=== PATIENT | female | born 1940 | race American Indian/Alaskan Native ===

== ENCOUNTER 2023-09-24 15:53 | Inpatient (IN) | payer BC, OTHER ==
[~2023-09-24] VITALS: Ht 152.4 cm; Wt 593.8 kg
[2023-09-24 15:55] VITALS: BP 128/62; PULSE 58; RESP 18; TEMP 97.8; O2SAT 99
[2023-09-24 16:36] LABS: BASOPHILS # (AUTO) 0.1 K/uL (0.00-0.22); EOSINOPHILS # (AUTO) 0.4 K/uL (0-0.4); EOSINOPHILS % (AUTO) 7.3 % (0.0-4.0); HEMATOCRIT 33.4 % (36-48); HEMOGLOBIN 10.7 g/dL (12.0-16.0); LYMPHOCYTES # (AUTO) 0.5 K/uL (2.5-16.5); LYMPHOCYTES % (AUTO) 9.1 % (20.5-51.1); MEAN CORPUSCULAR HEMOGLOBIN 23 pg (27-31); MEAN CORPUSCULAR HGB CONC 32 g/dL (33-37); MONOCYTES # (AUTO) 0.2 K/uL (0.8-1.0); MONOCYTES % (AUTO) 4.5 % (1.7-9.3); NEUTROPHILS % (AUTO) 78.1 % (42.2-75.2); PLATELET COUNT (AUTO) 131 K/uL (140-450); RED BLOOD CELL COUNT(AUTO) 4.77 MIL/uL (4.20-5.40); WHITE BLOOD COUNT (AUTO) 5.2 K/uL (4.8-10.8)
[2023-09-24 16:50] LABS: ALANINE AMINOTRANSFERASE 24 U/L (12-78); ALBUMIN 3.2 g/dL (3.4-5.0); ALKALINE PHOSPHATASE 74 U/L (50-136); ANION GAP 11.3 (8-16); ASPARTATE AMINOTRANSFERASE 41 U/L (15-37); CALCIUM 8.8 mg/dL (8.5-10.1); CARBON DIOXIDE 31.2 mmol/L (21-32); CHLORIDE 100 mmol/L (98-107); CREATININE 1.3 mg/dL (0.6-1.3); GLUCOSE 106 mg/dL (74-106); POTASSIUM 3.5 mmol/L (3.5-5.1); SODIUM SERUM 139 mmol/L (136-145); TOTAL BILIRUBIN 1.1 mg/dL (0.0-1.0); TOTAL PROTEIN, SERUM 7.4 g/dL (6.4-8.2); UREA NITROGEN, BLOOD 35 mg/dL (7-18)
[2023-09-24] MEDS ORDERED: TRAM50TA3 PO (19:12)
[2023-09-24] MEDS ORDERED: DILT30TA PO (19:12)
[2023-09-24] MEDS ORDERED: ALLO300T28 PO (19:12)
[2023-09-24] MEDS ORDERED: FURO20TA8 PO (19:12)
[2023-09-24] MEDS ORDERED: METO-744 PO (19:12)
[2023-09-24] MEDS ORDERED: KCL 20 MEQ IN 100 mL PREMIX 200 ML IV PRN (19:20)
[2023-09-24] MEDS ORDERED: MAG SULF 2000 MG/WATER PREMIX 50 ML IV PRN (19:20)
[2023-09-24] MEDS ORDERED: MAGNESIUM OXIDE 400 MG TAB PO PRN (19:20)
[2023-09-24 19:32] VITALS: O2SAT 99
[2023-09-24] MEDS: FUROSEMIDE 20 MG/2 ML VIAL IVP SCH (21:00)
[2023-09-24 21:45] VITALS: BP 105/62; PULSE 51; PULSE 93; RESP 18; TEMP 98.2; O2SAT 95; O2SAT 96
[2023-09-24 23:55] VITALS: PULSE 93
[2023-09-25] VITALS (8 sets, daily range): BP systolic 107–118; BP diastolic 51–67; PULSE 72–122; RESP 18–20; TEMP 96.9–98.2; O2SAT 96–99
[2023-09-25 07:07] LABS: BASOPHILS % (AUTO) 0.7 % (0.0-2.0); EOSINOPHILS # (AUTO) 0.4 K/uL (0-0.4); EOSINOPHILS % (AUTO) 8.9 % (0.0-4.0); HEMATOCRIT 30.8 % (36-48); LYMPHOCYTES # (AUTO) 0.5 K/uL (2.5-16.5); LYMPHOCYTES % (AUTO) 10.2 % (20.5-51.1); MEAN CORPUSCULAR HEMOGLOBIN 23 pg (27-31); MEAN CORPUSCULAR HGB CONC 33 g/dL (33-37); MEAN CORPUSCULAR VOLUME 69.6 fL (80-94); MONOCYTES # (AUTO) 0.3 K/uL (0.8-1.0); NEUTROPHILS # (AUTO) 3.4 K/uL (1.8-7.7); NEUTROPHILS % (AUTO) 74.2 % (42.2-75.2); PLATELET COUNT (AUTO) 144 K/uL (140-450); RED BLOOD CELL COUNT(AUTO) 4.43 MIL/uL (4.20-5.40); RED CELL DISTRIBUTION WIDTH 17.9 % (11.6-13.7); WHITE BLOOD COUNT (AUTO) 4.6 K/uL (4.8-10.8)
[2023-09-25 07:53] LABS: MAGNESIUM 2.3 mg/dL (1.8-2.4); PHOSPHORUS 3.1 mg/dL (2.5-4.9)
[2023-09-25 08:23] LABS: ANION GAP 13.4 (8-16); CALCIUM 8.5 mg/dL (8.5-10.1); CARBON DIOXIDE 25.1 mmol/L (21-32); CHLORIDE 105 mmol/L (98-107); CREATININE 1.3 mg/dL (0.6-1.3); GLUCOSE 119 mg/dL (74-106); POTASSIUM 3.5 mmol/L (3.5-5.1); SODIUM SERUM 140 mmol/L (136-145); UREA NITROGEN, BLOOD 36 mg/dL (7-18)
[2023-09-25] MEDS: FUROSEMIDE 40 MG/4 ML VIAL IVP SCH (09:42)
[2023-09-25] MEDS: ASPIRIN 81 MG TAB.CHEW PO SCH (09:43)
[2023-09-25] MEDS: ATORVASTATIN 20 MG TAB PO SCH (09:43)
[2023-09-25] MEDS: HYDROcodone/APAP 5/325 MG 1 TAB TAB PO PRN (17:57)
[2023-09-25] MEDS: ZOLPIDEM 5 MG TAB PO PRN (20:14)
[2023-09-25] MEDS: DILTIAZEM 25 MG/5 ML VIAL IVP PRN (22:38)
[2023-09-26] VITALS (10 sets, daily range): BP systolic 106–128; BP diastolic 52–70; PULSE 90–124; RESP 18–21; TEMP 97.4–98.7; O2SAT 97–100
[2023-09-26 06:49] LABS: BASOPHILS % (AUTO) 0.4 % (0.0-2.0); EOSINOPHILS # (AUTO) 0.5 K/uL (0-0.4); EOSINOPHILS % (AUTO) 10.8 % (0.0-4.0); HEMATOCRIT 32.3 % (36-48); HEMOGLOBIN 10.3 g/dL (12.0-16.0); LYMPHOCYTES # (AUTO) 0.7 K/uL (2.5-16.5); LYMPHOCYTES % (AUTO) 14.2 % (20.5-51.1); MEAN CORPUSCULAR HEMOGLOBIN 23 pg (27-31); MEAN CORPUSCULAR HGB CONC 32 g/dL (33-37); MEAN CORPUSCULAR VOLUME 70.4 fL (80-94); MONOCYTES # (AUTO) 0.3 K/uL (0.8-1.0); NEUTROPHILS # (AUTO) 3.5 K/uL (1.8-7.7); NEUTROPHILS % (AUTO) 69.6 % (42.2-75.2); PLATELET COUNT (AUTO) 125 K/uL (140-450); RED BLOOD CELL COUNT(AUTO) 4.59 MIL/uL (4.20-5.40); RED CELL DISTRIBUTION WIDTH 18.3 % (11.6-13.7)
[2023-09-26 07:54] LABS: ANION GAP 10.8 (8-16); CALCIUM 8.6 mg/dL (8.5-10.1); CARBON DIOXIDE 28.7 mmol/L (21-32); CHLORIDE 104 mmol/L (98-107); CREATININE 1.5 mg/dL (0.6-1.3); GLUCOSE 124 mg/dL (74-106); POTASSIUM 3.5 mmol/L (3.5-5.1); SODIUM SERUM 140 mmol/L (136-145); UREA NITROGEN, BLOOD 43 mg/dL (7-18)
[2023-09-26 08:13] LABS: PHOSPHORUS 3.6 mg/dL (2.5-4.9)
[2023-09-27] VITALS (11 sets, daily range): BP systolic 99–120; BP diastolic 50–61; PULSE 98–115; RESP 16–21; TEMP 98.7–99.3; O2SAT 94–100
[2023-09-27 07:49] LABS: BASOPHILS % (AUTO) 0.3 % (0.0-2.0); EOSINOPHILS # (AUTO) 0.6 K/uL (0-0.4); EOSINOPHILS % (AUTO) 10.5 % (0.0-4.0); HEMATOCRIT 31.6 % (36-48); LYMPHOCYTES # (AUTO) 0.6 K/uL (2.5-16.5); LYMPHOCYTES % (AUTO) 10.4 % (20.5-51.1); MEAN CORPUSCULAR HEMOGLOBIN 22 pg (27-31); MEAN CORPUSCULAR HGB CONC 32 g/dL (33-37); MEAN CORPUSCULAR VOLUME 70.8 fL (80-94); MONOCYTES # (AUTO) 0.3 K/uL (0.8-1.0); MONOCYTES % (AUTO) 4.2 % (1.7-9.3); NEUTROPHILS # (AUTO) 4.6 K/uL (1.8-7.7); NEUTROPHILS % (AUTO) 74.6 % (42.2-75.2); RED BLOOD CELL COUNT(AUTO) 4.46 MIL/uL (4.20-5.40); WHITE BLOOD COUNT (AUTO) 6.1 K/uL (4.8-10.8)
[2023-09-27 07:51] LABS: ANION GAP 8.9 (8-16); CALCIUM 8.4 mg/dL (8.5-10.1); CARBON DIOXIDE 30.4 mmol/L (21-32); CHLORIDE 102 mmol/L (98-107); CREATININE 1.7 mg/dL (0.6-1.3); GLUCOSE 157 mg/dL (74-106); POTASSIUM 3.3 mmol/L (3.5-5.1); SODIUM SERUM 138 mmol/L (136-145); UREA NITROGEN, BLOOD 47 mg/dL (7-18)
[2023-09-27 08:19] LABS: MAGNESIUM 1.9 mg/dL (1.8-2.4); PHOSPHORUS 3.3 mg/dL (2.5-4.9)
[2023-09-27 08:53] LABS: PLATELET COUNT (AUTO) 120 K/uL (140-450)
[2023-09-27] MEDS: POTASSIUM CHLORIDE 10 MEQ TABER PO PRN (09:33)
[2023-09-27] MEDS: ALBUTEROL SULFATE/IPRATROPIU 3 ML SOL IH SCH (13:38)
[2023-09-27] MEDS ORDERED: METOPROLOL 25 MG TAB PO SCH (21:00)
[2023-09-28] VITALS (7 sets, daily range): BP systolic 95–116; BP diastolic 60–62; PULSE 102–125; RESP 18–24; TEMP 98–98.6; O2SAT 97–100
[2023-09-28] MEDS ORDERED: PIPERACILLIN/TAZOBACTAM 2.25 GM in DEXTROSE 5% 50 ML IV SCH ×2 (00:20→21:00)
[2023-09-28] MEDS: ACETAMINOPHEN 325 MG TAB PO PRN (04:51)
[2023-09-28 06:30] LABS: BASOPHILS % (AUTO) 0.1 % (0.0-2.0); EOSINOPHILS # (AUTO) 0.7 K/uL (0-0.4); EOSINOPHILS % (AUTO) 11.3 % (0.0-4.0); HEMATOCRIT 30.8 % (36-48); HEMOGLOBIN 9.8 g/dL (12.0-16.0); LYMPHOCYTES # (AUTO) 0.6 K/uL (2.5-16.5); LYMPHOCYTES % (AUTO) 9.3 % (20.5-51.1); MEAN CORPUSCULAR HEMOGLOBIN 23 pg (27-31); MEAN CORPUSCULAR HGB CONC 32 g/dL (33-37); MEAN CORPUSCULAR VOLUME 70.7 fL (80-94); MONOCYTES # (AUTO) 0.3 K/uL (0.8-1.0); MONOCYTES % (AUTO) 4.7 % (1.7-9.3); NEUTROPHILS # (AUTO) 4.6 K/uL (1.8-7.7); NEUTROPHILS % (AUTO) 74.6 % (42.2-75.2); PLATELET COUNT (AUTO) 134 K/uL (140-450); RED BLOOD CELL COUNT(AUTO) 4.36 MIL/uL (4.20-5.40); RED CELL DISTRIBUTION WIDTH 18.7 % (11.6-13.7); WHITE BLOOD COUNT (AUTO) 6.2 K/uL (4.8-10.8)
[2023-09-28 07:00] LABS: ANION GAP 11.3 (8-16); CALCIUM 8.7 mg/dL (8.5-10.1); CARBON DIOXIDE 28.8 mmol/L (21-32); CHLORIDE 101 mmol/L (98-107); CREATININE 1.6 mg/dL (0.6-1.3); GLUCOSE 155 mg/dL (74-106); POTASSIUM 4.1 mmol/L (3.5-5.1); SODIUM SERUM 137 mmol/L (136-145); UREA NITROGEN, BLOOD 49 mg/dL (7-18)
[2023-09-28 07:14] LABS: MAGNESIUM 2.1 mg/dL (1.8-2.4); PHOSPHORUS 2.5 mg/dL (2.5-4.9)
[2023-09-28] MEDS: METOPROLOL 25 MG TAB PO SCH (09:00)
[2023-09-28] MEDS ORDERED: FUROSEMIDE 40 MG TAB PO SCH (09:00)
[2023-09-28] MEDS ORDERED: NACL 0.9% 500 ML IV SCH (16:10)
[2023-09-28] MEDS: NACL 0.9% 1,000 ML IV SCH (18:04)
[2023-09-28] MEDS: PIPERACILLIN/TAZOBACTAM 2.25 GM in DEXTROSE 5% 50 ML IV SCH (18:05)
[2023-09-28 18:30] LABS: LACTIC ACID 2.8 mmol/L (0.4-2.0)
[2023-09-28] MEDS ORDERED: ALBUTEROL SULFATE/IPRATROPIU 3 ML SOL IH PRN (18:35)
[2023-09-29] VITALS (19 sets, daily range): BP systolic 82–112; BP diastolic 41–63; PULSE 79–119; RESP 16–26; TEMP 98.2–98.9; O2SAT 95–100
[2023-09-29] MEDS: PIPERACILLIN/TAZOBACTAM 2.25 GM in DEXTROSE 5% 50 ML IV SCH (02:00)
[2023-09-29] MEDS ORDERED: PIPERACILLIN/TAZOBACTAM 2.25 GM in DEXTROSE 5% 50 ML IV SCH (05:00)
[2023-09-29 07:05] LABS: BASOPHILS % (AUTO) 0.2 % (0.0-2.0); EOSINOPHILS # (AUTO) 1.1 K/uL (0-0.4); EOSINOPHILS % (AUTO) 17.1 % (0.0-4.0); HEMATOCRIT 30.8 % (36-48); HEMOGLOBIN 9.8 g/dL (12.0-16.0); LYMPHOCYTES # (AUTO) 0.5 K/uL (2.5-16.5); MEAN CORPUSCULAR HEMOGLOBIN 23 pg (27-31); MEAN CORPUSCULAR HGB CONC 32 g/dL (33-37); MEAN CORPUSCULAR VOLUME 71.5 fL (80-94); MONOCYTES # (AUTO) 0.2 K/uL (0.8-1.0); MONOCYTES % (AUTO) 3.2 % (1.7-9.3); NEUTROPHILS # (AUTO) 4.4 K/uL (1.8-7.7); NEUTROPHILS % (AUTO) 71.5 % (42.2-75.2); PLATELET COUNT (AUTO) 138 K/uL (140-450); RED BLOOD CELL COUNT(AUTO) 4.31 MIL/uL (4.20-5.40); RED CELL DISTRIBUTION WIDTH 18.4 % (11.6-13.7); WHITE BLOOD COUNT (AUTO) 6.2 K/uL (4.8-10.8)
[2023-09-29 07:24] LABS: CALCIUM 8.3 mg/dL (8.5-10.1); CARBON DIOXIDE 25.3 mmol/L (21-32); CHLORIDE 102 mmol/L (98-107); CREATININE 1.8 mg/dL (0.6-1.3); GLUCOSE 128 mg/dL (74-106); POTASSIUM 4.3 mmol/L (3.5-5.1); SODIUM SERUM 136 mmol/L (136-145); UREA NITROGEN, BLOOD 48 mg/dL (7-18)
[2023-09-29 07:29] LABS: PHOSPHORUS 2.8 mg/dL (2.5-4.9)
[2023-09-29 08:34] LABS: BLOOD GAS BASE EXCESS 0.9 mmol/L (-2.0-2.0); BLOOD GAS HCO3 24.1 mmol/L (22-26); BLOOD GAS PCO2 33.3 mmHg (35-45); BLOOD GAS PH 7.477 (7.35-7.45); BLOOD GAS PO2 69.2 mmHg (75-100)
[2023-09-29 08:35] LABS: BLOOD GAS O2 SAT% 95.2 % (92.0-98.5)
[2023-09-29] MEDS: NACL 0.9% 1,000 ML IV STA (08:39)
[2023-09-29] MEDS: PANTOPRAZOLE 40 MG INJ VIAL IVP SCH (10:24)
[2023-09-29] MEDS: METOPROLOL 25 MG TAB PO SCH (20:14)
[2023-09-29 20:43] LABS: FLU A ANTIGEN negative (NEGATIVE); FLU B ANTIGEN NEGATIVE (NEGATIVE)
[2023-09-30] VITALS (26 sets, daily range): BP systolic 87–150; BP diastolic 42–79; PULSE 91–121; RESP 20–28; TEMP 98.3–101; O2SAT 96–100
[2023-09-30] MEDS: ONDANSETRON 4 MG/2 ML VIAL IVP PRN (00:49)
[2023-09-30 05:33] LABS: BASOPHILS # (AUTO) 0.1 K/uL (0.00-0.22); BASOPHILS % (AUTO) 0.8 % (0.0-2.0); EOSINOPHILS # (AUTO) 1.4 K/uL (0-0.4); HEMATOCRIT 34.5 % (36-48); HEMOGLOBIN 11.1 g/dL (12.0-16.0); LYMPHOCYTES # (AUTO) 0.7 K/uL (2.5-16.5); LYMPHOCYTES % (AUTO) 7.7 % (20.5-51.1); MEAN CORPUSCULAR HEMOGLOBIN 23 pg (27-31); MEAN CORPUSCULAR HGB CONC 32 g/dL (33-37); MEAN CORPUSCULAR VOLUME 71.4 fL (80-94); MONOCYTES # (AUTO) 0.4 K/uL (0.8-1.0); NEUTROPHILS # (AUTO) 5.9 K/uL (1.8-7.7); NEUTROPHILS % (AUTO) 69.6 % (42.2-75.2); PLATELET COUNT (AUTO) 159 K/uL (140-450); RED BLOOD CELL COUNT(AUTO) 4.83 MIL/uL (4.20-5.40); RED CELL DISTRIBUTION WIDTH 19.5 % (11.6-13.7); WHITE BLOOD COUNT (AUTO) 8.5 K/uL (4.8-10.8)
[2023-09-30 05:42] LABS: ANION GAP 9.7 (8-16); CALCIUM 7.9 mg/dL (8.5-10.1); CARBON DIOXIDE 27.1 mmol/L (21-32); CHLORIDE 104 mmol/L (98-107); CREATININE 1.7 mg/dL (0.6-1.3); GLUCOSE 109 mg/dL (74-106); POTASSIUM 4.8 mmol/L (3.5-5.1); SODIUM SERUM 136 mmol/L (136-145); UREA NITROGEN, BLOOD 42 mg/dL (7-18)
[2023-09-30 06:08] LABS: EOSINOPHILS % (AUTO) 16.9 % (0.0-4.0)
[2023-10-01] VITALS (16 sets, daily range): BP systolic 87–118; BP diastolic 40–58; PULSE 78–121; RESP 19–23; TEMP 97.9–99; O2SAT 95–100
[2023-10-01 05:27] LABS: ANION GAP 11.4 (8-16); CALCIUM 7.4 mg/dL (8.5-10.1); CARBON DIOXIDE 23.2 mmol/L (21-32); CHLORIDE 105 mmol/L (98-107); CREATININE 1.7 mg/dL (0.6-1.3); GLUCOSE 110 mg/dL (74-106); POTASSIUM 4.6 mmol/L (3.5-5.1); SODIUM SERUM 135 mmol/L (136-145); UREA NITROGEN, BLOOD 42 mg/dL (7-18)
[2023-10-01 09:41] LABS: HEMATOCRIT 33.3 % (36-48); HEMOGLOBIN 10.7 g/dL (12.0-16.0); MEAN CORPUSCULAR HEMOGLOBIN 23 pg (27-31); MEAN CORPUSCULAR HGB CONC 32 g/dL (33-37); MEAN CORPUSCULAR VOLUME 71.3 fL (80-94); PLATELET COUNT (AUTO) 163 K/uL (140-450); RED BLOOD CELL COUNT(AUTO) 4.67 MIL/uL (4.20-5.40); RED CELL DISTRIBUTION WIDTH 20.5 % (11.6-13.7); WHITE BLOOD COUNT (AUTO) 8.4 K/uL (4.8-10.8)
[2023-10-01 09:58] LABS: LYMPHOCYTES % (MANUAL) 11 % (20-46); MONOCYTES % (MANUAL) 4 % (5-12)
[2023-10-01 09:59] LABS: EOSINOPHILS % (MANUAL) 14 % (0-4)
[2023-10-01] MEDS: NACL 0.9% 250 ML IV SCH (18:24)
[2023-10-01] MEDS: NACL 0.9% 1,000 ML IV SCH (22:00)
[2023-10-02] VITALS (16 sets, daily range): BP systolic 86–122; BP diastolic 42–86; PULSE 97–128; RESP 7–23; TEMP 97.5–98.9; O2SAT 95–100
[2023-10-02 08:16] LABS: BASOPHILS % (AUTO) 0.3 % (0.0-2.0); EOSINOPHILS # (AUTO) 2.3 K/uL (0-0.4); EOSINOPHILS % (AUTO) 29.5 % (0.0-4.0); HEMATOCRIT 30.3 % (36-48); HEMOGLOBIN 9.8 g/dL (12.0-16.0); LYMPHOCYTES # (AUTO) 0.9 K/uL (2.5-16.5); LYMPHOCYTES % (AUTO) 11.9 % (20.5-51.1); MEAN CORPUSCULAR HEMOGLOBIN 23 pg (27-31); MEAN CORPUSCULAR HGB CONC 32 g/dL (33-37); MEAN CORPUSCULAR VOLUME 71.3 fL (80-94); MONOCYTES # (AUTO) 0.5 K/uL (0.8-1.0); NEUTROPHILS # (AUTO) 4.1 K/uL (1.8-7.7); NEUTROPHILS % (AUTO) 52.3 % (42.2-75.2); PLATELET COUNT (AUTO) 177 K/uL (140-450); RED BLOOD CELL COUNT(AUTO) 4.25 MIL/uL (4.20-5.40); RED CELL DISTRIBUTION WIDTH 20.7 % (11.6-13.7); WHITE BLOOD COUNT (AUTO) 7.9 K/uL (4.8-10.8)
[2023-10-02 08:24] LABS: ANION GAP 14.2 (8-16); CALCIUM 7.3 mg/dL (8.5-10.1); CARBON DIOXIDE 20.2 mmol/L (21-32); CHLORIDE 107 mmol/L (98-107); CREATININE 1.8 mg/dL (0.6-1.3); GLUCOSE 138 mg/dL (74-106); POTASSIUM 4.4 mmol/L (3.5-5.1); SODIUM SERUM 137 mmol/L (136-145); UREA NITROGEN, BLOOD 48 mg/dL (7-18)
[2023-10-03] VITALS (17 sets, daily range): BP systolic 91–134; BP diastolic 40–59; PULSE 98–123; RESP 16–20; TEMP 98.2–99.9; O2SAT 94–100
[2023-10-03 10:39] LABS: CALCIUM 7.8 mg/dL (8.5-10.1); CARBON DIOXIDE 21.3 mmol/L (21-32); CHLORIDE 105 mmol/L (98-107); CREATININE 1.9 mg/dL (0.6-1.3); GLUCOSE 142 mg/dL (74-106); POTASSIUM 4.3 mmol/L (3.5-5.1); SODIUM SERUM 136 mmol/L (136-145); UREA NITROGEN, BLOOD 50 mg/dL (7-18)
[2023-10-03] MEDS ORDERED: AMOX1TAB8 PO (13:10)
[2023-10-04] VITALS (8 sets, daily range): BP systolic 107–122; BP diastolic 45–53; PULSE 50–106; RESP 16–20; TEMP 97.1–98.8; O2SAT 94–100
== END 2023-10-04 17:15 | DRG 280 ==
LOC: MED 15:53 → MTU 19:21 → MIC 09-29 11:21 → MTU 10-02 23:15
PROVIDERS: ADMIT Internal Medicine; ATTEND Internal Medicine
DX: I50.33 Acute on chronic diastolic (congestive) heart failure (principal); J96.21 Acute and chronic respiratory failure with hypoxia; I21.A1 Myocardial infarction type 2; E44.0 Moderate protein-calorie malnutrition; N17.9 Acute kidney failure, unspecified; I42.2 Other hypertrophic cardiomyopathy; Z68.45 Body mass index [BMI] 70 or greater, adult; I27.20 Pulmonary hypertension, unspecified; Z20.822 Contact with and (suspected) exposure to COVID-19; N18.9 Chronic kidney disease, unspecified; D64.9 Anemia, unspecified; D69.6 Thrombocytopenia, unspecified; R74.01 Elevation of levels of liver transaminase levels; M10.9 Gout, unspecified; I51.7 Cardiomegaly; K74.60 Unspecified cirrhosis of liver
CPT/HCPCS: 36415; 36600; 71045; 71250; 80048; 80053; 82803; 83605; 83735; 83880; 84100; 84484; 85025; 87040; 87081; 93005; 94010; 94640; 97112; 97116; 97163-GP; 97530; 99291; C9113; J1644; J1940; J2405; J2543; J3490; J7060; Q0092